=== PATIENT | male | born 1985 | race Caucasian/White ===

== ENCOUNTER 2018-05-07 08:20 | Inpatient (IN) | payer MEDICARE, MEDICAID ==
[2018-05-07 08:21] VITALS: BMI 33.4
[2018-05-07 09:31] LABS: BASO # 0.1 K/uL (0.0-0.2); EOS # 0.1 K/uL (0.0-0.7); EOS % 0.8 % (0.0-4.0); HEMOGLOBIN 14.1 g/dL (12.0-18.0); LYMPH # 2.8 K/uL (1.0-4.3); LYMPH % 32.4 % (20.0-40.0); MEAN CELL VOLUME 88.7 fL (80.0-94.0); MEAN CORPUSCULAR HEMOGLOBIN 29.6 pg (27.0-31.0); MEAN CORPUSCULAR HGB CONC 33.4 g/dL (33.0-37.0); MEAN PLATELET VOLUME 9.3 fL (7.2-11.7); MONO # 0.8 K/uL (0.0-0.8); MONO % 9.1 % (0.0-10.0); NEUT % 56.7 % (50.0-75.0); RBC 4.78 Mil/uL (4.40-5.90); RED CELL DISTRIBUTION WIDTH 12.6 % (11.5-14.5); WHITE BLOOD COUNT 8.8 K/uL (4.8-10.8)
[2018-05-07 09:34] LABS: URINE BACTERIA RARE (<OCC); URINE BILIRUBIN NEGATIVE (NEGATIVE); URINE BLOOD NEGATIVE (NEGATIVE); URINE CLARITY Clear (Clear); URINE COLOR Yellow (YELLOW); URINE GLUCOSE (UA) NORMAL (Normal); URINE LEUKOCYTE ESTERASE NEG Leu/uL (Negative); URINE PROTEIN 1+ mg/dL (NEGATIVE); URINE UROBILINOGEN NORMAL mg/dL (0.2-1.0)
[2018-05-07 09:56] LABS: ALB/GLOB RATIO 1.2 (1.0-2.1); ALBUMIN 4.3 g/dL (3.5-5.0); ALT/SGPT 40 U/L (21-72); AST/SGOT 72 U/L (17-59); BLOOD UREA NITROGEN 16 mg/dL (9-20); CALCIUM 9.3 mg/dl (8.6-10.4); GFR AFRICAN-AMERICAN > 60; GFR NON-AFRICAN AMERICAN > 60
[2018-05-07 10:05] LABS: BARBITURATES, UR NEGATIVE (NEGATIVE); BENZODIAZEPINES, UR NEGATIVE (NEGATIVE); OPIATES, UR NEGATIVE (NEGATIVE); PHENCYCLIDINE, UR NEGATIVE (NEGATIVE)
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
--- NOTE | 2018-05-07 11:22 | RAD ---
Date of service: 05/07/2018 HISTORY: med clearance for psych admission COMPARISON: 01/03/2014 FINDINGS: LUNGS: No active pulmonary disease.Lung volumes slightly shallow. PLEURA: No significant pleural effusion identified, no pneumothorax apparent. CARDIOVASCULAR: Heart size probably top-normal No gross pulmonary venous congestion. OSSEOUS STRUCTURES: No significant abnormalities. VISUALIZED UPPER ABDOMEN: Normal. OTHER FINDINGS: None. IMPRESSION: No active disease.
[2018-05-07 11:34] VITALS: O2SAT 98
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
[2018-05-07] MEDS: Divalproex 500 mg DR Tab PO SCH ×2 (14:30→17:51)
--- NOTE | 2018-05-07 15:22 | CARD ---
APPROVED REPORT Date of service: 05/07/2018 EKG Measurement Heart [id number] <Conclusion> Normal sinus rhythm Normal ECG
[2018-05-07] MEDS ORDERED: Aritificial Tears (15ml) OU PRN (15:54)
--- NOTE | 2018-05-07 15:59 | PCM.BM ---
Treatment Plan Problems - Problems identified on initial assessmt psychosis Date Initiated: 05/07/18 Time Initiated: 16:02 Assessment reference: NA Status: Active aggressive behavior Date Initiated: 05/07/18 Time Initiated: 16:03 Assessment reference: NA Status: Active insomnia Date Initiated: 05/07/18 Time Initiated: 16:03 Assessment reference: NA Status: Active Treatment assets and liabiliti Patient Assests: self-reliant, ADL independent, physically healthy, good support system Patient Liabilities: substance abuse, medical problems - Milieu Protocol Maintain good personal hygiene: daily Encourage regular showers, daily Remind patient to perform daily oral care, daily Assist patient to perform ADL's Conduct patient checks and document Observation sheet: Q15 minutes Maintain personal safety: every shift Educate patient to report safety concerns to staff, every shift Monitor environment for contraband/sharps Medication safety: Monitor for expected outcome, potential side effects: every shift, Assess barriers to learning: every shift, Assess readiness for medication education: every shift
[2018-05-07] MEDS ORDERED: Carboxymethylcellulose 1% Ophth Soln OU PRN (16:45)
[2018-05-07] MEDS ORDERED: DiphenhydrAMINE 50 mg/ml Inj IM PRN (18:00)
[2018-05-08 06:37] VITALS: RESP 20; TEMP 98.4
[2018-05-08] MEDS ORDERED: Caffeine Citrated **INJ** 20 MG/ML IV ONE (09:28)
[2018-05-08] MEDS: Divalproex 500 mg DR Tab PO SCH ×2 (10:30→18:27)
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
[2018-05-08 15:44] VITALS: BP 135/88; PULSE 105
[2018-05-08] MEDS ORDERED: Divalproex 250 mg DR Tab PO SCH (18:00)
[2018-05-09] MEDS ORDERED: Pneumococcal 23-Valent Vaccine IM ONE (10:00)
== END 2018-05-08 22:50 | disposition short-term general hospital (02) | DRG 885 ==
LOC: C.ER 08:20 → C.5E 11:58
PROVIDERS: ADMIT Psychiatry & Neurology Psychiatry; ATTEND Psychiatry & Neurology Psychiatry
PROC: GZHZZZZ Group Psychotherapy (ICD-10-PCS; principal; 2018-05-07)
PROC: GZ58ZZZ Individual Psychotherapy, Cognitive-Behavioral (ICD-10-PCS; 2018-05-07)
PROC: GZ56ZZZ Individual Psychotherapy, Supportive (ICD-10-PCS; 2018-05-07)
DX: F25.0 Schizoaffective disorder, bipolar type (principal); R45.851 Suicidal ideations; F12.90 Cannabis use, unspecified, uncomplicated; G47.00 Insomnia, unspecified; F41.9 Anxiety disorder, unspecified; R45.850 Homicidal ideations; Z87.891 Personal history of nicotine dependence

== ENCOUNTER 2018-06-21 21:52 | Emergency (ER) | payer MEDICARE, OTHER ==
[2018-06-21 21:52] VITALS: BMI 33.4
[2018-06-21 22:06] VITALS: BP 130/81; PULSE 105; TEMP 98.8; O2SAT 98
[2018-06-21] MEDS ORDERED: Tmp-Smz 800 mg-160 mg DS Tab PO SCH (23:45)
--- NOTE | 2018-06-21 23:50 | C.PDOC ---
History Of Present Illness 32 year old male presents to the emergency department with complaints of pain to the right index finger when he hit it with a door two days ago. Patient states that since then, he feels as if the pain has increased and that the area has gotten swollen. Chief Complaint (Nursing): Finger,Hand,&Wrist History Per: Patient History/Exam Limitations: no limitations Onset/Duration Of Symptoms: Days (2) Current Symptoms Are (Timing): Worse Quality: "Pain" Past Medical History Reviewed: Historical Data, Nursing Documentation, Vital Signs Vital Signs: Last Vital Signs Temp 98.8 F 06/21/18 22:05 Pulse 105 H 06/21/18 22:05 Resp 20 06/22/18 00:03 BP 130/81 06/21/18 22:05 Pulse Ox 98 06/22/18 02:49 - Medical History PMH: Anxiety, Bipolar Disorder, Paranoia, Schizophrenia Denies: Diabetes, Hepatitis, HIV, HTN, Chronic Kidney Disease, Seizures, Sexually Transmitted Disease Surgical History: No Surg Hx - [facility] Procedures CLOSURE SKIN & SUBCUTANEOUS NEC (01/07/14) GROUP PSYCHOTHERAPY (05/07/18) INDIVID PSYCHOTHERAP NEC (03/04/14) INDIVIDUAL PSYCHOTHERAPY, COGNITIVE-BEHAVIORAL (05/07/18) INDIVIDUAL PSYCHOTHERAPY, SUPPORTIVE (05/07/18) INJECT/INFUSE NEC (08/06/14) INTRODUCTION OF SERUM/TOX/VACCINE INTO MUSCLE, PERC APPROACH (12/14/17) OTHER GROUP THERAPY (03/04/14) Family History: States: No Known Family Hx - Social History Hx Tobacco Use: Yes Hx Alcohol Use: Yes Hx Substance Use: No (H/O marijuana abuse.) - Immunization History Hx Tetanus Toxoid Vaccination: No (UNSURE) Hx Influenza Vaccination: No Hx Pneumococcal Vaccination: No Review Of Systems Except As Marked, All Systems Reviewed And Found Negative. Musculoskeletal: Positive for: Hand Pain (right index finger), Other (right index finger swelling) Neurological: Negative for: Weakness, Numbness Physical Exam - Physical Exam Appears: Non-toxic, No Acute Distress Skin: Warm, Dry, Other (swelling around nail marging, fluctuance) Head: Atraumatic, Normacephalic Eye(s): bilateral: Normal Inspection Oral Mucosa: Moist Neck: Normal, Supple Chest: Symmetrical, No Tenderness Extremity: Normal ROM, No Tenderness, Swelling (noted to the right index finger next to nail margins, pos fluctuance) Neurological/Psych: Oriented x3, Normal Speech, Normal Cognition ED Course And Treatment O2 Sat by Pulse Oximetry: 98 (RA) Pulse Ox Interpretation: Normal - Other Rad XR Right Hand X-Ray: Interpreted by Me, Viewed By Me Interpretation: Negative for fractures or dislocations. Progress Note: Plan: Bactrim 1 tab PO. Keflex 500mg PO. Would Culture. XR Hand Right Second Digit negative for fx. Patient instructed to return in two days for a wound check. - Incision & Drainage Of Abscess Anesthesia: Lidocaine 1% Procedure: Incised W/Scalpel Blade#: (11), Drained Pus, Irrigated Cavity W/ Saline, Probed To Break Up Loculations, Packed W/Gauze, Cultures Obtained And Sent To Lab Disposition - Disposition Referrals: Shaik Calvin MD [Staff Provider] - Disposition: HOME/ ROUTINE Disposition Time: 23:47 Condition: STABLE Additional Instructions: Follow up with your PMD within 1-2 days. Wound check in ED in 2 days. Return to ED immediately if feel worse. Prescriptions: Sulfamethoxazole/Trimethoprim [Bactrim DS 800 mg-160 mg] 1 tab PO BID #14 tab Cephalexin [cephalexin] 500 mg PO Q6 #28 cap Acetaminophen with Codeine [Tylenol with Codeine #3 Tablet] 1 each PO .Q4-6H # 20 tablet Instructions: Paronychia (DC) Forms: [facility] (Puerto Rican) - Clinical Impression Clinical Impression: Paronychia - PA / SHEEP CLIPPER / Resident Statement MD/DO has reviewed & agrees with the documentation as recorded. - Scribe Statement The provider has reviewed the documentation as recorded by the Scribe (Adithya Vila) All medical record entries made by the Scribe were at my direction and personally dictated by me. I have reviewed the chart and agree that the record accurately reflects my personal performance of the history, physical exam, medical decision making, and the department course for this patient. I have also personally directed, reviewed, and agree with the discharge instructions and disposition.
[2018-06-22 00:04] VITALS: RESP 20
--- NOTE | 2018-06-22 11:25 | RAD ---
Date of service: 06/21/2018 PROCEDURE: Right Index finger radiographs. HISTORY: pain/swelling COMPARISON: 10/15/2012. TECHNIQUE: AP radiograph of the right hand, as well as spot oblique and lateral images of index finger were obtained. FINDINGS: RIGHT INDEX FINGER: Normal right index finger, without fracture or focal lesion. Remainder of the right hand (as seen on the AP view) grossly intact. JOINTS: Normal. SOFT TISSUES: There is diffuse soft tissue swelling in the 2nd finger. OTHER FINDINGS: None. IMPRESSION: No acute fracture or dislocation. Diffuse soft tissue swelling in the 2nd finger. No radiopaque foreign body.
== END 2018-06-22 00:03 | disposition home or self-care (01) ==
LOC: C.ER 21:52
DX: L03.011 Cellulitis of right finger (principal)

== ENCOUNTER 2018-06-23 10:53 | Emergency (ER) | payer MEDICARE, OTHER ==
[2018-06-23 10:54] VITALS: BMI 33.4
[2018-06-23 11:02] VITALS: BP 140/88; PULSE 93; RESP 18; TEMP 99.4; O2SAT 96
--- NOTE | 2018-06-23 12:19 | C.PDOC ---
History Of Present Illness 32 year old male presents to the emergency department for a wound check of a right index finger paronychia that was incised two days ago. Patient denies pain to the area, and reports that he has not been compliant with the prescribed antibiotics. He denies fever. Time Seen by Provider: 06/23/18 11:33 Chief Complaint (Nursing): Wound Check History Per: Patient History/Exam Limitations: no limitations Onset/Duration Of Symptoms: Days Ago (2) Current Symptoms Are (Timing): Still Present Location Of Injury: Right: Hand (index finger) Quality Of Symptoms: denies: Painful Past Medical History Reviewed: Historical Data, Nursing Documentation, Vital Signs Vital Signs: Last Vital Signs Temp 99.4 F 06/23/18 11:00 Pulse 93 H 06/23/18 11:00 Resp 18 06/23/18 12:00 BP 140/88 06/23/18 11:00 Pulse Ox 96 06/25/18 20:02 - Medical History PMH: Anxiety, Bipolar Disorder, Paranoia, Schizophrenia Denies: Diabetes, Hepatitis, HIV, HTN, Chronic Kidney Disease, Seizures, Sexually Transmitted Disease Surgical History: No Surg Hx - [facility] Procedures CLOSURE SKIN & SUBCUTANEOUS NEC (01/07/14) GROUP PSYCHOTHERAPY (05/07/18) INDIVID PSYCHOTHERAP NEC (03/04/14) INDIVIDUAL PSYCHOTHERAPY, COGNITIVE-BEHAVIORAL (05/07/18) INDIVIDUAL PSYCHOTHERAPY, SUPPORTIVE (05/07/18) INJECT/INFUSE NEC (08/06/14) INTRODUCTION OF SERUM/TOX/VACCINE INTO MUSCLE, PERC APPROACH (12/14/17) OTHER GROUP THERAPY (03/04/14) Family History: States: Unknown Family Hx - Social History Hx Tobacco Use: Yes Hx Alcohol Use: Yes Hx Substance Use: Yes (marijuana abuse.) - Immunization History Hx Tetanus Toxoid Vaccination: No (UNSURE) Hx Influenza Vaccination: No Hx Pneumococcal Vaccination: No Review Of Systems Constitutional: Negative for: Fever Skin: Positive for: Other (right index finger paronychia) Physical Exam - Physical Exam Appears: Non-toxic, No Acute Distress Skin: Warm, Dry, Other (small packing under the right index fingernail. No swelling, non erythematous, non tender.no drainage) Head: Atraumatic, Normacephalic Extremity: Normal ROM (all extremities), No Swelling (to the right index finger) Pulses: Right Radial: Normal Neurological/Psych: Oriented x3, Normal Speech, Normal Cognition ED Course And Treatment O2 Sat by Pulse Oximetry: 96 (RA) Pulse Ox Interpretation: Normal Medical Decision Making Medical Decision Making: pt with right paronychia with packing; packing is dry, removed today in ed. no swelling or redness noted. pt non compliant with antibiotics, but no signs of infection. pt left before official discharge. Disposition - Disposition Disposition: ELOPEMENT - ER ONLY Disposition Time: 12:00 Condition: GOOD Forms: [facility] (Malay) - Clinical Impression Clinical Impression: Encounter for wound re-check - PA / COMMERCIAL ARTIST LETTERING / Resident Statement MD/DO has reviewed & agrees with the documentation as recorded. - Scribe Statement The provider has reviewed the documentation as recorded by the Scribe (Adithya Vila) All medical record entries made by the Scribe were at my direction and personally dictated by me. I have reviewed the chart and agree that the record accurately reflects my personal performance of the history, physical exam, medical decision making, and the department course for this patient. I have also personally directed, reviewed, and agree with the discharge instructions and disposition.
== END 2018-06-23 12:00 | disposition left against medical advice (07) ==
LOC: C.ER 10:53
DX: Z48.00 Encounter for change or removal of nonsurgical wound dressing (principal)

== ENCOUNTER 2018-07-04 05:43 | Emergency (ER) | payer MEDICARE, OTHER ==
[2018-07-04 05:44] VITALS: BMI 33.4
[2018-07-04 05:57] VITALS: BP 133/87; PULSE 104; TEMP 98.7; O2SAT 98
[2018-07-04 06:02] VITALS: RESP 16
== END 2018-07-04 06:01 | disposition left against medical advice (07) ==
LOC: C.ER 05:43
DX: Z02.89 Encounter for other administrative examinations (principal)

== ENCOUNTER 2018-09-19 16:43 | Emergency (ER) | payer MEDICARE, OTHER ==
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
[2018-09-19 17:05] VITALS: BMI 35.4
[2018-09-19 17:43] LABS: BASO # 0.1 K/uL (0.0-0.2); EOS # 0.1 K/uL (0.0-0.7); EOS % 0.8 % (0.0-4.0); HEMOGLOBIN 14.3 g/dL (12.0-18.0); LYMPH # 2.3 K/uL (1.0-4.3); LYMPH % 21.2 % (20.0-40.0); MEAN CELL VOLUME 86.8 fL (80.0-94.0); MEAN CORPUSCULAR HEMOGLOBIN 28.9 pg (27.0-31.0); MEAN CORPUSCULAR HGB CONC 33.3 g/dL (33.0-37.0); MEAN PLATELET VOLUME 8.7 fL (7.2-11.7); MONO # 0.8 K/uL (0.0-0.8); MONO % 7.7 % (0.0-10.0); NEUT # 7.6 K/uL (1.8-7.0); NEUT % 69.3 % (50.0-75.0); RBC 4.93 Mil/uL (4.40-5.90); RED CELL DISTRIBUTION WIDTH 12.4 % (11.5-14.5)
[2018-09-19] MEDS ORDERED: Sodium Chloride 0.9% 1,000 ML IV ONE (17:52)
[2018-09-19 17:57] LABS: URINE BACTERIA RARE (<OCC); URINE BILIRUBIN NEGATIVE (NEGATIVE); URINE BLOOD NEGATIVE (NEGATIVE); URINE CLARITY Hazy (Clear); URINE COLOR Amber (YELLOW); URINE GLUCOSE (UA) NORMAL (Normal); URINE LEUKOCYTE ESTERASE NEG Leu/uL (Negative); URINE PROTEIN 2+ mg/dL (NEGATIVE)
[2018-09-19 17:58] LABS: ACETAMINOPHEN < 10.0 ug/mL (10.0-30.0); SALICYLATE < 1.0 mg/dL 1
[2018-09-19 17:59] LABS: ALB/GLOB RATIO 1.1 (1.0-2.1); ALBUMIN 4.4 g/dL (3.5-5.0); ALT/SGPT 27 U/L (21-72); AST/SGOT 42 U/L (17-59); BLOOD UREA NITROGEN 21 mg/dL (9-20); CALCIUM 9.3 mg/dl (8.6-10.4); GFR NON-AFRICAN AMERICAN > 60
[2018-09-19 18:18] LABS: BARBITURATES, UR NEGATIVE (NEGATIVE); OPIATES, UR NEGATIVE (NEGATIVE); PHENCYCLIDINE, UR NEGATIVE (NEGATIVE)
[2018-09-19] MEDS ORDERED: Tdap Vaccine 0.5 ml Vial (10-64 yrs) IM ONE (18:18)
[2018-09-19 18:20] LABS: BENZODIAZEPINES, UR POSITIVE (NEGATIVE)
[2018-09-19] MEDS ORDERED: Iohexol 300 100 ML IJ ONE (18:33)
[2018-09-19 20:01] VITALS: RESP 16; O2SAT 97
[2018-09-19 21:29] VITALS: BP 121/66; PULSE 81; TEMP 98.3
[2018-09-19] MEDS ORDERED: Tetanus/Diphtheria Toxoids 0.5 ml Syringe IM ONE (21:51)
--- NOTE | 2018-09-20 10:28 | RAD ---
PROCEDURE: Left Hand Radiographs. HISTORY: hand pain COMPARISON: None available. FINDINGS: BONES: Chronic appearing fracture deformity at the base of the 5th metacarpal. Evidence of expansile lesion along the lateral distal contour of the proximal 5th phalanx. This finding demonstrates thickened cortex without evidence of periosteal reaction. No acute displaced fracture. JOINTS: No dislocation. SOFT TISSUES: Unremarkable. No evidence of radiopaque foreign body. OTHER FINDINGS: None. IMPRESSION: Evidence of remote fracture deformity involving the base of the 5th metacarpal. Abnormal contour along the lateral aspect of the proximal 5th phalanx distally with evidence of expansile lesion which demonstrates evidence of chondroid matrix. Recommend clinical correlation and if indicated MRI without and with IV contrast for further characterization. Study marked for PA review and findings discussed with Pita Wright on 09/20/18 at 10:19 a.m.
== END 2018-09-19 21:56 | disposition short-term general hospital (02) ==
LOC: C.ER 16:43
DX: S31.010A Laceration without foreign body of lower back and pelvis without penetration into retroperitoneum, initial encounter (principal); X78.1XXA Intentional self-harm by knife, initial encounter; F20.9 Schizophrenia, unspecified; I10 Essential (primary) hypertension; Z72.0 Tobacco use
CPT/HCPCS: 71045; 73130; 80053; 81001; 82550; 83735; 84100; 85025; 90471; 90715; 99285; G0480; J7030